=== PATIENT | male | born 2005 | race Hispanic/Latino ===

== ENCOUNTER 2025-01-29 13:08 | Emergency (ER) | payer OTHER ==
[2025-01-29 13:35] LABS: Absolute Lymphocytes (CBC) 1.7 K/uL (0.7-4.9); Absolute Monocytes 0.3 K/uL (0.1-1.3); Absolute Neutrophil 2.3 K/uL (1.8-8.0); Basophils % 0.6 % (0-1.3); Eosinophils % 0.8 % (0-4.4); Hematocrit 40.8 % (39.6-49.0); Hemoglobin 13.9 g/dL (13.6-17.9); MCH 31.4 pg (27.0-35.0); MCHC 34.1 g/dL (32.0-36.0); MCV 92.1 fL (80-100); MPV 8.9 fL (7.6-11.3); Monocytes % 6.9 % (3.3-12.3); Neutrophils % 52.7 % (41.7-73.7); Platelets 243 thou/uL (152-406); RBC Red Blood Cell Count 4.43 M/uL (4.33-5.43); Red Cell Distribution Width 13.1 % (12.1-15.2)
[2025-01-29 13:42] LABS: PT Prothrombin Time 13.5 SECONDS (10-13.0); PTT, Activated Partial Thromb 34.2 SECONDS (27.2-37.4); Protime INR 1.19
[2025-01-29 13:57] LABS: ALT/SGPT 27 U/L (16-61); Albumin 3.6 g/dL (3.4-5.0); Albumin/Globulin Ratio 1.1 (1.1-1.8); Alkaline Phosphatase 49 U/L (45-117); BUN Blood Urea Nitrogen 8 mg/dL (7-18); Bicarbonate 27 mEq/L (21-32); Bilirubin Direct 0.3 mg/dL (0-0.2); Bilirubin Indirect, Calculated 0.8 mg/dL (0.2-0.8); Bilirubin Total 1.1 mg/dL (0.2-1.0); Globulin 3.2 g/dL (2.3-3.5); Glomerular Filtration Rate 129 ml/min (=/>90); Glucose Level 114 mg/dL (74-106); Protein, Total 6.8 g/dL (6.4-8.2); Sodium Level 141 mEq/L (136-145); Valproic Acid (Depakene) Level 145.7 mcg/mL (50.0-100.0)
[2025-01-29 13:59] LABS: AST/SGOT < 10 U/L (15-37)
[2025-01-29] MEDS ORDERED: NA CHLORIDE 0.9% 1,000 ML ONE (14:29)
[2025-01-29 15:02] LABS: Barbiturates NEGATIVE (NEGATIVE); Benzodiazepines NEGATIVE (NEGATIVE); Cocaine NEGATIVE (NEGATIVE); METHAMPHETAM NEGATIVE (NEGATIVE); Methadone NEGATIVE (NEGATIVE); Opiates NEGATIVE (NEGATIVE); Phencyclidine NEGATIVE (NEGATIVE); THC Cannibis NEGATIVE (NEGATIVE)
--- NOTE | 2025-01-29 18:13 | ER ---
Nurse's Notes [facility] Name: Filipe Delgado Age: 20 yrs Sex: Male : 2005 Arrival Date: 01/29/2025 Time: 13:08 Bed 5 Private MD: Diagnosis: Intentional valproic acid overdose Presentation: 01/29 13:10 Chief complaint: EMS states: Inmate [facility], had access to medications, reports that he took 29 tablets of depakote 250 mg, denies SI, states he took them, " Because I was tired of being hot and they won't give me a fan." VSS, poison control contacted by EMS, has 18G LAC, received 900 mL NS and activated charcoal, vomited 1 time and there were 3 pills noted. Coronavirus screen: Vaccine status: Patient reports being unvaccinated. Ebola Screen: No symptoms or risks identified at this time. Initial Sepsis Screen: Does the patient meet any 2 criteria? No. Patient's initial sepsis screen is negative. Does the patient have a suspected source of infection? No. Patient's initial sepsis screen is negative. Risk Assessment: Do you want to hurt yourself or someone else? Patient reports no desire to harm self or others. Onset of symptoms was January 29, 2025. 13:10 Method Of Arrival: EMS: [facility] 13:10 Acuity: CHANELL 3 Triage Assessment: 13:17 General: Appears in no apparent distress. comfortable, Behavior is cooperative. Pain: ph Denies pain. Neuro: Level of Consciousness is awake, alert, obeys commands, Oriented to person, place, time, situation. Cardiovascular: Capillary refill < 3 seconds in bilateral fingers Patient's skin is warm and dry. Respiratory: Airway is patent Respiratory effort is even, unlabored. GI: No signs and/or symptoms were reported involving the gastrointestinal system. Derm: Skin is pink, warm \\T\\ dry. Historical: - Allergies: 13:15 thorazine; ph - Home Meds: 13:15 benzoyl peroxide 10 % topical cream [Active]; divalproex 250 mg oral Tablet, Extended ph Release 24 hr 1 tab nightly [Active]; lactulose 10 gram/15 mL Oral solution 30 mL 2 times per day [Active]; - Immunization history:: Adult Immunizations unknown. - Infectious Disease History:: Denies. - Social history:: Smoking status: unknown. Screenin:18 [facility] ED Fall Risk Assessment (Adult) History of falling in the last 3 months, ph including since admission No falls in past 3 months (0 pts) Confusion or Disorientation No (0 pts) Intoxicated or Sedated No (0 pts) Impaired Gait Yes (1 pt) Mobility Assist Device Used No (0 pt) Altered Elimination No (0 pt) Score/Fall Risk Level 0 - 2 = Low Risk Oriented to surroundings, Maintained a safe environment, Hourly rounding (assess needs \\T\\ fall precautionary measures) done. Abuse screen: Denies threats or abuse. Denies injuries from another. Nutritional screening: No deficits noted. Tuberculosis screening: No symptoms or risk factors identified. Assessment: 13:19 Reassessment: Poison control contacted by EMS at 1220, advised to monitor for ph hypotension and seizures, give IV fluids, cardiac monitoring, protect airway Case # [id number]. 14:30 Reassessment: Patient appears in no apparent distress at this time. Patient and/or ph family updated on plan of care and expected duration. Pain level reassessed. Patient is alert, oriented x 3, equal unlabored respirations, skin warm/dry/pink. 16:00 Reassessment: Patient appears in no apparent distress at this time. Patient and/or ph family updated on plan of care and expected duration. Pain level reassessed. Patient is alert, oriented x 3, equal unlabored respirations, skin warm/dry/pink. 17:46 Reassessment: Patient appears in no apparent distress at this time. Patient and/or ph family updated on plan of care and expected duration. Pain level reassessed. Patient is alert, oriented x 3, equal unlabored respirations, skin warm/dry/pink. Overdose: 13:18 [place] Suicide Severity Screening: "In the past month, have you wished you were ph or wished you could go to sleep and not wake up?" Patient responds "no." "In the past month, have you actually had any thoughts of killing yourself?" Patient responds "no." "In your lifetime, have you ever done anything, started to do anything, or prepared to do anything to end your life?" Patient responds "no.". Vital Signs: 13:10 BP 113 / 85; Pulse 84; Resp 18; Temp 98.3(O); Pulse Ox 99% on R/A; Weight 54.43 kg; ph Height 5 ft. 4 in. ; 14:00 BP 115 / 72; Pulse 69; Resp 18; Pulse Ox 100% on R/A; ph 14:46 BP 115 / 72; Pulse 79; Resp 18; Pulse Ox 100% on R/A; ph 16:00 BP 114 / 58; Pulse 67; Resp 18; Pulse Ox 100% on R/A; ph 17:00 BP 110 / 62; Pulse 68; Resp 18; Pulse Ox 99% on R/A; ph 17:47 BP 109 / 61; Pulse 66; Resp 18; Pulse Ox 100% on R/A; ph 13:10 Body Mass Index 20.60 (54.43 kg, 162.56 cm) - Percentile 18.0 % ph Vitals: 14:46 Cardiac Rhythm Assessment Sinus rhythm. ph ED Course: 13:09 Patient arrived in ED. ph 13:10 Adrianne Cortez PA-C is PHCP. sb4 13:10 Jon Montano MD is Attending Physician. sb4 13:15 Triage completed. ph 13:18 Arm band placed on Patient placed in an exam room, on a stretcher, on pulse oximetry. ph 13:19 Patient has correct armband on for positive identification. Bed in low position. Call ph light in reach. Side rails up X2. lunchroom monitor on. Pulse ox on. NIBP on. 13:21 Alem Mercedes, RN is Primary Nurse. ph 13:27 Initial lab(s) drawn, by ED staff, sent to lab. Maintain EMS IV. Dressing intact. Good ph blood return noted. Site clean \\T\\ dry. Gauge \\T\\ site: 18 LAC. Flushed with 10 mL NS. 14:46 Troponin High Sensitivity Sent. ph 14:46 AMMONIA Sent. ph 14:46 Initial lab(s) drawn, by ma, sent to lab. Urine collected: clean catch specimen. ph 18:44 No provider procedures requiring assistance completed. IV discontinued, intact, ph bleeding controlled, No redness/swelling at site. Pressure dressing applied. Administered Medications: 14:25 CANCELLED (Physician Discretion): ammonia aromatic1 inhalations Inhalation once sb4 14:46 Drug: NS 0.9% IV 1000 ml IV at 1000 ml once; to be given as a bolus over 60 minutes ph Route: IV; Rate: 1000 ml; Site: left antecubital; 16:00 Follow up: Response: No adverse reaction; IV Status: Completed infusion; IV Intake: ph 1000ml Medication: 13:18 VIS not applicable for this client. ph Intake: 16:00 IV: 1000ml; Total: 1000ml. ph Outcome: 18:12 Discharge ordered by MD. tyson 18:44 Discharged to Law Enforcement ph 18:44 Condition: good 18:44 Discharge instructions given to patient, police, Instructed on discharge instructions, follow up and referral plans. Demonstrated understanding of instructions, follow-up care, 18:53 Patient left the ED. ph Signatures: Alem Mercedes RN RN ph Adrianne Cortez PA-C PA-C sb4
--- NOTE | 2025-01-29 18:13 | EDPHYS ---
Physician Documentation [facility] Name: Filipe Delgado Age: 20 yrs Sex: Male : 2005 Arrival Date: 01/29/2025 Time: 13:08 Bed 5 Private MD: ED Physician Jon Montano HPI: 01/29 13:11 This 20 yrs old Male presents to ER via Unassigned with complaints of Possible Overdose.sb4 13:11 The patient presents to the emergency department after a known overdose, that was sb4 intentional. Context: Method: the patient has a confirmed or suspected ingestion, depakote, Time: at 11:00. Associated signs and symptoms: The patient has no apparent associated signs or symptoms. 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 was given activated carac[place], vomited shortly after. EMS visualized 3 whole pills in the emesis. no other symptoms at this time. poison control was contacted REHAB OFFICE COORDINATOR. Historical: - Allergies: 13:15 thorazine; ph - Home Meds: 13:15 benzoyl peroxide 10 % topical cream [Active]; divalproex 250 mg oral Tablet, Extended ph Release 24 hr 1 tab nightly [Active]; lactulose 10 gram/15 mL Oral solution 30 mL 2 times per day [Active]; - Immunization history:: Adult Immunizations unknown. - Infectious Disease History:: Denies. - Social history:: Smoking status: unknown. ROS: 13:12 Constitutional: Negative for fever, chills, and weight loss, sb4 13:12 All other systems are negative, Exam: 18:27 Constitutional: This is a well developed, well nourished patient who is awake, alert, sb4 and in no acute distress. Head/Face: Normocephalic, atraumatic. Eyes: Extra-ocular motions intact. Periorbital areas with no swelling, redness, or edema. ENT: Mucous membranes moist. Cardiovascular: Regular rate and rhythm with a normal S1 and S2. Respiratory: No increased work of breathing, no retractions or nasal flaring. Abdomen/GI: Soft, non-tender, no distension. Skin: Warm, dry with normal turgor. Normal color with no rashes, no lesions, and no evidence of cellulitis. Vital Signs: 13:10 BP 113 / 85; Pulse 84; Resp 18; Temp 98.3(O); Pulse Ox 99% on R/A; Weight 54.43 kg; ph Height 5 ft. 4 in. ; 14:00 BP 115 / 72; Pulse 69; Resp 18; Pulse Ox 100% on R/A; ph 14:46 BP 115 / 72; Pulse 79; Resp 18; Pulse Ox 100% on R/A; ph 16:00 BP 114 / 58; Pulse 67; Resp 18; Pulse Ox 100% on R/A; ph 17:00 BP 110 / 62; Pulse 68; Resp 18; Pulse Ox 99% on R/A; ph 17:47 BP 109 / 61; Pulse 66; Resp 18; Pulse Ox 100% on R/A; ph 13:10 Body Mass Index 20.60 (54.43 kg, 162.56 cm) - Percentile 18.0 % ph MDM: 13:10 Medical Screening Exam initiated sb4 15:20 Management of patient was discussed with the following: Poison control-stated there is sb4 no specific timeframe for monitoring. However, it is recommended to trend the valproic acid level to its peak and ensure that it is downtrending. 18:27 Data reviewed: vital signs, nurses notes, EMS record, lab test result(s), EKG, sb4 radiologic studies, and as a result, I will discharge patient. Counseling: I had a detailed discussion with the patient and/or guardian regarding the historical points, exam findings, and any diagnostic results supporting the discharge/admit diagnosis, lab results, radiology results, the need for outpatient follow up, for definitive care, to return to the emergency department if symptoms worsen or persist or if there are any questions or concerns that arise at home. 01/29 13:10 Order name: Acetaminophen; Complete Time: 14:00 sb4 01/29 13:10 Order name: Basic Metabolic Panel; Complete Time: 14:00 sb4 01/29 13:10 Order name: CBC with Diff; Complete Time: 13:40 sb4 01/29 13:10 Order name: ETOH Level; Complete Time: 14:45 sb4 01/29 13:10 Order name: Hepatic Function; Complete Time: 14:00 sb4 01/29 13:10 Order name: PT-INR; Complete Time: 13:43 sb4 01/29 13:10 Order name: Ptt, Activated; Complete Time: 13:43 sb4 01/29 13:10 Order name: Salicylate; Complete Time: 14:07 sb4 01/29 13:10 Order name: Urine Drug Screen; Complete Time: 15:04 sb4 01/29 13:10 Order name: Depakote; Complete Time: 14:00 sb4 01/29 14:17 Order name: Troponin High Sensitivity; Complete Time: 14:46 sb4 01/29 14:25 Order name: AMMONIA; Complete Time: 15:04 sb4 01/29 15:18 Order name: Valproic Acid (depakote); Complete Time: 16:12 sb4 01/29 17:11 Order name: Valproic Acid (depakote); Complete Time: 18:11 sb4 01/29 13:10 Order name: EKG - Nurse/Tech; Complete Time: 13:33 sb4 01/29 13:10 Order name: IV Saline Lock; Complete Time: 13:11 sb4 01/29 13:10 Order name: Labs collected and sent; Complete Time: 13:11 sb4 01/29 13:10 Order name: Suicide Screening ([place]); Complete Time: 13:27 sb4 01/29 14:17 Order name: Cardiac monitoring; Complete Time: 14:25 sb4 EC:37 Rate is 71 beats/min. Rhythm is regular, Normal Sinus Rhythm. OH interval is normal at sb4 164 msec. QRS interval is normal at 78 msec. QT interval is normal at 384 msec. No Q waves. T waves are Normal. No ST changes noted. Clinical impression: Normal ECG. Interpreted by me. Reviewed by me. Administered Medications: 14:25 CANCELLED (Physician Discretion): ammonia aromatic1 inhalations Inhalation once sb4 14:46 Drug: NS 0.9% IV 1000 ml IV at 1000 ml once; to be given as a bolus over 60 minutes ph Route: IV; Rate: 1000 ml; Site: left antecubital; 16:00 Follow up: Response: No adverse reaction; IV Status: Completed infusion; IV Intake: ph 1000ml Disposition Summary: 01/29/25 18:12 Discharge Ordered Notes: Location: Home sb4 Problem: new sb4 Symptoms: have improved sb4 Condition: Stable sb4 Diagnosis - Intentional valproic acid overdose sb4 Followup: sb4 - With: Emergency Department - When: As needed - Reason: Trouble breathing, Worsening of condition Discharge Instructions: - Discharge Summary Sheet sb4 - Intentional Drug Overdose sb4 Forms: - Patient Portal Instructions sb4 - Leadership Thank You Letter sb4 Signatures: Dispatcher [employer] Alem Gutierrez RN RN ph Adrianne Cortez PA-C PA-C sb4 Corrections: (The following items were deleted from the chart) 13:11 13:11 ACETAMINOPHEN+C.LAB.BRZ ordered. EDMS EDMS 13:11 13:11 BASIC METABOLIC PANEL+C.LAB.BRZ ordered. EDMS EDMS 13:11 13:11 CBC+H.LAB.BRZ ordered. EDMS EDMS 13:11 13:11 ETHANOL+C.LAB.BRZ ordered. EDMS EDMS 13:11 13:11 HEPATIC FUNCTION+C.LAB.BRZ ordered. EDMS EDMS 13:11 13:11 PROTIME (+INR)+COAG.LAB.BRZ ordered. EDMS EDMS 13:11 13:11 PTT, ACTIVATED+COAG.LAB.BRZ ordered. EDMS EDMS 13:11 13:11 SALICYLATE+C.LAB.BRZ ordered. EDMS EDMS 13:11 13:11 URINE DRUG SCREEN+UC.LAB.BRZ ordered. EDMS EDMS 13:11 13:11 VALPROIC ACID (DEPAKOTE)+C.LAB.BRZ ordered. 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 vomited shortly after. EMS visualized 3 whole pills in the emesis. no other symptoms at this time. poison control was contacted REHAB OFFICE COORDINATOR. sb4 14:25 14:24 Ammonia Aromatic Inhalation 1 inhalations Inhalation once ordered. sb4 sb4 14:25 14:25 AMMONIA+C.LAB.BRZ ordered. EDMS EDMS 17:12 17:12 VALPROIC ACID (DEPAKOTE)+C.LAB.BRZ ordered. EDMS EDMS
[2025-01-29 19:05] VITALS: TEMP 98.3
[2025-01-29 19:11] VITALS: BP 109/61; O2SAT 100
--- NOTE | 2025-02-02 16:55 | EKG ---
Test Date: 2025-01-29 Test Time: 13:34:42 [employer]ificial [employer] Tier: SUSHANT MEASUREMENT RESULTS: Intervals: Rate: 71 VT: 164 QRSD: 78 QT: 384 QTc: 417 [place]: P: 52 VT: 164 QRS: 82 T: 57 INTERPRETIVE STATEMENTS: Normal sinus rhythm with sinus arrhythmia Normal ECG No previous ECG available for comparison Electronically Signed On 02-02-25 16:49:41 CDT by Irwin Dickens
== END 2025-01-29 18:53 | disposition home or self-care (01) ==
LOC: ER 13:08
DX: T42.6X2A Poisoning by other antiepileptic and sedative-hypnotic drugs, intentional self-harm, initial encounter (principal)
CPT/HCPCS: 36415; 80048; 80076; 80143; 80164; 80179; 80307; 82077; 82140; 84484; 85025; 85610; 85730; 93005; 96360; 99285; J7030